=== PATIENT | male | born 1955 | race Caucasian/White ===

== ENCOUNTER 2020-04-14 09:42 | Emergency (ER) | payer MEDICARE ==
--- NOTE | 2020-04-14 10:39 | EDM.PDOC ---
ED HPI GENERAL MEDICAL PROBLEM - General Chief Complaint: General Stated Complaint: FEVER Time Seen by Provider: 04/14/20 10:24 Source of Information: Reports: Patient, Mcc Records History Limitations: Reports: Other (Dementia) - History of Present Illness INITIAL COMMENTS - FREE TEXT/NARRATIVE: Presents with intermittent fever up to 102.8 for 3 days. Denies any other complaints. Patient resides at [facility] and was sent to the ED to rule out sepsis. A COVID test was done on 04/11/20 but results are still pending. CBC was normal, but CRP was elevated at 46.1 mg/L on 04/13/20. [facility] records indicate patient is a DNR. PMHx significant for PVD, CVA, HTN, Vascular Dementia, Anxiety, and Depression. ED RN witnessed a 1-2 minute episode of unresponsiveness and cyanosis, resolved with stimulation, there was no tonic clonic activity. Cardiac activity was not being monitored during the episode. Duration: Day(s): (3) Severity: Moderate - Related Data Allergies Allergy/AdvReac Type Severity Reaction Status Date / Time No Known Allergies Allergy Verified 04/14/20 10:39 Past Medical History Cardiovascular History: Reports: Hypertension Neurological History: Reports: CVA Psychiatric History: Reports: Anxiety, Dementia, Depression Social & Family History - Tobacco Use Tobacco Use Status *Q: Former Tobacco User - Alcohol Use Alcohol Use in Last Twelve Months: No ED ROS GENERAL - Review of Systems Review Of Systems: Unable To Obtain Reason Not Obtained: Dementia ED EXAM, GENERAL - Physical Exam Exam: See Below Exam Limited By: No Limitations General Appearance: Alert, WD/WN, No Apparent Distress Eye Exam: Bilateral Eye: EOMI, PERRL Ears: Normal External Exam, Other (right cerumen impaction) Nose: Normal Inspection Throat/Mouth: Normal Inspection, Normal Oropharynx, No Airway Compromise Head: Atraumatic, Normocephalic Neck: Supple Respiratory/Chest: No Respiratory Distress, Lungs Clear, Normal Breath Sounds Cardiovascular: Regular Rate, Rhythm, No Murmur GI/Abdominal: Normal Bowel Sounds, Soft, Non-Tender, No Distention Back Exam: Full Range of Motion Extremities: Normal Range of Motion, Non-Tender Neurological: Alert, No Motor/Sensory Deficits Psychiatric: Normal Affect, Normal Mood Skin Exam: Warm, Dry, Intact, Normal Color, No Rash #1 Interpretation EKG Date: 04/14/20 Time: 10:10 Rhythm: NSR Rate (Beats/Min): 94 [place]: Normal P-Wave: Present QRS: Normal ST-T: Other (Normal early repolarization ST elevation) QT: Normal Comparison: NA - No Prior EKG Course - Vital Signs Last Recorded V/S: Last Vital Signs Temp 37.7 C 04/14/20 09:50 Pulse 109 H 04/14/20 09:50 Resp 16 04/14/20 09:50 BP 140/86 04/14/20 09:50 Pulse Ox 95 04/14/20 09:50 - Orders/Labs/Meds Orders: Active Orders 24 hr Category Date Time Status EKG Documentation Completion [RC] ASDIRECTED Care 04/14/20 10:08 Active CXR [Chest 1V Frontal] [CR] Stat Exams 04/14/20 10:09 Taken Head wo Cont [CT] Stat Exams 04/14/20 10:10 Taken CULTURE BLOOD [BC] Urgent Lab 04/14/20 10:25 Received CULTURE BLOOD [BC] Urgent Lab 04/14/20 10:30 Received Blood Culture x2 Reflex Set [OM.PC] Urgent Oth 04/14/20 10:09 Ordered EKG 12 Lead [EK] Stat Ther 04/14/20 10:08 Ordered Labs: Laboratory Tests 04/14/20 04/14/20 04/14/20 Range/Units 10:25 10:25 10:25 WBC 5.8 (4.5-12.0) X10-3/uL RBC 5.47 (4.30-5.75) x10(6)uL Hgb 16.8 (13.5-17.8) g/dL Hct 49.4 (30.0-51.3) % MCV 90.3 (80-96) fL MCH 30.7 (27.7-33.6) pg MCHC 34.0 (32.2-35.4) g/dL RDW 13.8 (11.5-15.5) % Plt Count 168 (125-369) X10(3)uL MPV 9.8 (7.4-10.4) fL Neut % (Auto) 67.4 (46-82) % Lymph % (Auto) 27.4 (13-37) % [place] % (Auto) 5.0 (4-12) % Eos % (Auto) 0 L (1.0-5.0) % Baso % (Auto) 0 (0-2) % Neut # (Auto) 3.9 (1.6-8.3) # Lymph # (Auto) 1.6 (0.6-5.0) # [place] # (Auto) 0.3 (0.0-1.3) # Eos # (Auto) 0.0 (0.0-0.8) # Baso # (Auto) 0.0 (0.0-0.2) # PT 11.0 (9.0-11.1) sec INR 1.02 (1.00-1.24) APTT 26.6 (24.4-33.2) SECONDS Sodium 137 (135-145) mmol/L Potassium 3.9 (3.5-5.3) mmol/L Chloride 99 L (100-110) mmol/L Carbon Dioxide 28 (21-32) mmol/L BUN 25 H (7-18) mg/dL Creatinine 1.5 H (0.70-1.30) mg/dL Est Cr Clr Drug Dosing TNP Estimated GFR (MDRD) 47 L (>60) BUN/Creatinine Ratio 16.7 (9-20) Glucose 161 H (80-116) mg/dL Lactic Acid (0.4-2.0) mmol/L Calcium 8.4 L (8.6-10.2) mg/dL Magnesium (1.8-2.5) mg/dL Total Bilirubin 0.6 (0.1-1.3) mg/dL AST 34 H (5-25) IU/L ALT 28 (12-36) U/L Alkaline Phosphatase 84 (56-112) IU/L Troponin I (4.0-60.3) pg/mL C-Reactive Protein (0.5-0.9) mg/dL Total Protein 7.4 (6.0-8.0) g/dL Albumin 3.4 (3.2-4.6) g/dL Globulin 4.0 g/dL Albumin/Globulin Ratio 0.9 Urine Color (YELLOW) Urine Appearance (CLEAR) Urine pH (5.0-6.5) Ur Specific Midnight (1.010-1.025) Urine Protein (NEGATIVE) mg/dL Urine Glucose (UA) (NORMAL) mg/dL Urine Ketones (NEGATIVE) mg/dL Urine Occult Blood (NEGATIVE) Urine Nitrite (NEGATIVE) Urine Bilirubin (NEGATIVE) Urine Urobilinogen (NEGATIVE) mg/dL Ur Leukocyte Esterase (NEGATIVE) Urine RBC (0-5) Urine WBC (0-5) Ur Squamous Epith Cells (NS,R,O) Amorphous Sediment Urine Bacteria (NS) SARS-CoV-2 RNA (MARIA ELENA) (NEGATIVE) 04/14/20 04/14/20 04/14/20 Range/Units 10:25 10:25 10:25 WBC (4.5-12.0) X10-3/uL RBC (4.30-5.75) x10(6)uL Hgb (13.5-17.8) g/dL Hct (30.0-51.3) % MCV (80-96) fL MCH (27.7-33.6) pg MCHC (32.2-35.4) g/dL RDW (11.5-15.5) % Plt Count (125-369) X10(3)uL MPV (7.4-10.4) fL Neut % (Auto) (46-82) % Lymph % (Auto) (13-37) % [place] % (Auto) (4-12) % Eos % (Auto) (1.0-5.0) % Baso % (Auto) (0-2) % Neut # (Auto) (1.6-8.3) # Lymph # (Auto) (0.6-5.0) # [place] # (Auto) (0.0-1.3) # Eos # (Auto) (0.0-0.8) # Baso # (Auto) (0.0-0.2) # PT (9.0-11.1) sec INR (1.00-1.24) APTT (24.4-33.2) SECONDS Sodium (135-145) mmol/L Potassium (3.5-5.3) mmol/L Chloride (100-110) mmol/L Carbon Dioxide (21-32) mmol/L BUN (7-18) mg/dL Creatinine (0.70-1.30) mg/dL Est Cr Clr Drug Dosing Estimated GFR (MDRD) (>60) BUN/Creatinine Ratio (9-20) Glucose (80-116) mg/dL Lactic Acid 1.9 (0.4-2.0) mmol/L Calcium (8.6-10.2) mg/dL Magnesium 2.2 (1.8-2.5) mg/dL Total Bilirubin (0.1-1.3) mg/dL AST (5-25) IU/L ALT (12-36) U/L Alkaline Phosphatase (56-112) IU/L Troponin I 21.1 (4.0-60.3) pg/mL C-Reactive Protein (0.5-0.9) mg/dL Total Protein (6.0-8.0) g/dL Albumin (3.2-4.6) g/dL Globulin g/dL Albumin/Globulin Ratio Urine Color (YELLOW) Urine Appearance (CLEAR) Urine pH (5.0-6.5) Ur Specific Midnight (1.010-1.025) Urine Protein (NEGATIVE) mg/dL Urine Glucose (UA) (NORMAL) mg/dL Urine Ketones (NEGATIVE) mg/dL Urine Occult Blood (NEGATIVE) Urine Nitrite (NEGATIVE) Urine Bilirubin (NEGATIVE) Urine Urobilinogen (NEGATIVE) mg/dL Ur Leukocyte Esterase (NEGATIVE) Urine RBC (0-5) Urine WBC (0-5) Ur Squamous Epith Cells (NS,R,O) Amorphous Sediment Urine Bacteria (NS) SARS-CoV-2 RNA (MARIA ELENA) (NEGATIVE) 04/14/20 04/14/20 04/14/20 Range/Units 10:25 11:11 12:00 WBC (4.5-12.0) X10-3/uL RBC (4.30-5.75) x10(6)uL Hgb (13.5-17.8) g/dL Hct (30.0-51.3) % MCV (80-96) fL MCH (27.7-33.6) pg MCHC (32.2-35.4) g/dL RDW (11.5-15.5) % Plt Count (125-369) X10(3)uL MPV (7.4-10.4) fL Neut % (Auto) (46-82) % Lymph % (Auto) (13-37) % [place] % (Auto) (4-12) % Eos % (Auto) (1.0-5.0) % Baso % (Auto) (0-2) % Neut # (Auto) (1.6-8.3) # Lymph # (Auto) (0.6-5.0) # [place] # (Auto) (0.0-1.3) # Eos # (Auto) (0.0-0.8) # Baso # (Auto) (0.0-0.2) # PT (9.0-11.1) sec INR (1.00-1.24) APTT (24.4-33.2) SECONDS Sodium (135-145) mmol/L Potassium (3.5-5.3) mmol/L Chloride (100-110) mmol/L Carbon Dioxide (21-32) mmol/L BUN (7-18) mg/dL Creatinine (0.70-1.30) mg/dL Est Cr Clr Drug Dosing Estimated GFR (MDRD) (>60) BUN/Creatinine Ratio (9-20) Glucose (80-116) mg/dL Lactic Acid (0.4-2.0) mmol/L Calcium (8.6-10.2) mg/dL Magnesium (1.8-2.5) mg/dL Total Bilirubin (0.1-1.3) mg/dL AST (5-25) IU/L ALT (12-36) U/L Alkaline Phosphatase (56-112) IU/L Troponin I (4.0-60.3) pg/mL C-Reactive Protein 7.2 H* (0.5-0.9) mg/dL Total Protein (6.0-8.0) g/dL Albumin (3.2-4.6) g/dL Globulin g/dL Albumin/Globulin Ratio Urine Color Yellow (YELLOW) Urine Appearance Slightly cloudy (CLEAR) Urine pH 5.0 (5.0-6.5) Ur Specific Midnight 1.025 (1.010-1.025) Urine Protein 500 H (NEGATIVE) mg/dL Urine Glucose (UA) Normal (NORMAL) mg/dL Urine Ketones Negative (NEGATIVE) mg/dL Urine Occult Blood Moderate H (NEGATIVE) Urine Nitrite Negative (NEGATIVE) Urine Bilirubin Small H (NEGATIVE) Urine Urobilinogen 1 H (NEGATIVE) mg/dL Ur Leukocyte Esterase Negative (NEGATIVE) Urine RBC 0-5 (0-5) Urine WBC 0-5 (0-5) Ur Squamous Epith Cells Few H (NS,R,O) Amorphous Sediment Moderate Urine Bacteria Many H (NS) SARS-CoV-2 RNA (MARIA ELENA) Positive H (NEGATIVE) Meds: Medications Discontinued Medications Generic Name Dose Route Start Last Admin Trade Name Ivet PRN Reason Stop Dose Admin Acetaminophen 650 mg 04/14/20 12:07 Tylenol PO 04/14/20 12:08 NOW ONE Sodium Chloride 500 mls @ 500 mls/hr 04/14/20 11:11 04/14/20 11:18 Normal Saline IV 04/14/20 12:10 500 mls/hr .BOLUS ONE Administration - Radiology Interpretation Free Text/Narrative:: CT Head s/ contrast: Impression: 1. No intracranial hemorrhage. 2. Chronic left occipital lobe infarct, and multiple age indeterminate hypodensities within the deep white matter, and periventricular white matter. Correlate clinically. 3. Intracranial vascular calcifications with volume loss. 4. Poor dentition with multiple periapical lucencies of the remaining teeth. 5. Extensive opacification of the right external auditory canal extending to the ear drum without definite extension into the inner ear. Dictated by Sagar Carver MD @ Apr 14 2020 11:21AM CXR: IMPRESSION: No acute cardiopulmonary findings. Dictated by Deandre Ramesh MD @ 04/14/2020 11:23:37 AM - Re-Assessments/Exams Free Text/Narrative Re-Assessment/Exam: 04/14/20 14:54 Not able to admit patient to [facility] as it is a COVID-free facility. I was informed by [facility] RN that their facility is unable to accept Mr. Porter back because they do not have staff available to care for a COVID-[address] Rowe accepted patient to [facility], but facility called back and their COVID-19 unit is full, so declined the admit. Dr. Skelton accepts patient to [facility]. Departure - Departure Time of Disposition: 14:59 Disposition: DC/Tfer to Acute Hospital 02 Condition: Fair Clinical Impression: COVID-19, Transient loss of consciousness - Discharge Information Referrals: Andrey Rodríguez MD [Primary Care Provider] - Forms: ED Department Discharge Sepsis Event Note (ED) - Evaluation Sepsis Screening Result: Possible Sepsis Risk - Focused Exam Vital Signs: Vital Signs Temp Pulse Resp BP Pulse Ox 04/14/20 09:50 37.7 C 109 H 16 140/86 95 - My Orders Last 24 Hours: My Active Orders 04/14/20 10:08 EKG Documentation Completion [RC] ASDIRECTED EKG 12 Lead [EK] Stat 04/14/20 10:09 CXR [Chest 1V Frontal] [CR] Stat Blood Culture x2 Reflex Set [OM.PC] Urgent 04/14/20 10:10 Head wo Cont [CT] Stat 04/14/20 10:25 CULTURE BLOOD [BC] Urgent 04/14/20 10:30 CULTURE BLOOD [BC] Urgent - Assessment/Plan Last 24 Hours: My Active Orders 04/14/20 10:08 EKG Documentation Completion [RC] ASDIRECTED EKG 12 Lead [EK] Stat 04/14/20 10:09 CXR [Chest 1V Frontal] [CR] Stat Blood Culture x2 Reflex Set [OM.PC] Urgent 04/14/20 10:10 Head wo Cont [CT] Stat 04/14/20 10:25 CULTURE BLOOD [BC] Urgent 04/14/20 10:30 CULTURE BLOOD [BC] Urgent
[2020-04-14] MEDS ORDERED: Sodium Chloride 0.9% 500 ML IV ONE (11:11)
[2020-04-14] MEDS ORDERED: Acetaminophen 325 MG Tab PO ONE (12:07)
== END 2020-04-14 14:50 ==
LOC: FB.ED 09:42
DX: U07.1 COVID-19 (principal); R55 Syncope and collapse; I10 Essential (primary) hypertension; F03.90 Unspecified dementia, unspecified severity, without behavioral disturbance, psychotic disturbance, mood disturbance, and anxiety; Z87.891 Personal history of nicotine dependence
CPT/HCPCS: 36415; 70450; 71045; 80053; 81001; 83605; 83735; 84484; 85025; 85610; 85730; 86140; 87040; 93005; 99285; A9270; J7040; U0002; 93010